=== PATIENT | female | born 1990 | race Caucasian/White ===

== ENCOUNTER → 2020-02-17 11:33 | Outpatient (BNVA) | payer OTHER, SELFPAY | PROVIDERS: Visit Provider Dermatology | DX: L25.5 Unspecified contact dermatitis due to plants, except food (principal); B07.8 Other viral warts; L85.8 Other specified epidermal thickening | CPT/HCPCS: 99203 ==

== ENCOUNTER 2021-07-19 17:04 | Outpatient (CLI) | payer OTHER, SELFPAY ==
[2021-07-19 17:04] VITALS: BMI 42.0
[2021-07-19 17:17] VITALS: TEMP 36.2
[2021-07-19 17:28] VITALS: BP 155/96; PULSE 100
[2021-07-19 17:43] VITALS: BP 148/97; PULSE 106
[2021-07-19 17:58] VITALS: BP 129/68; PULSE 95
[2021-07-19 18:13] VITALS: BP 119/60; PULSE 100
[2021-07-19 18:30] VITALS: BP 119/60; PULSE 100; RESP 16; TEMP 36.5
== END 2021-07-19 18:30 | disposition home or self-care (01) ==
LOC: OPOB 17:12 → OBGYN 17:14
PROVIDERS: PCP Registered Nurse; Visit Provider Family Medicine
DX: O16.9 Unspecified maternal hypertension, unspecified trimester (principal)
CPT/HCPCS: 59025; 99211

== ENCOUNTER 2021-07-20 06:20 | Inpatient (IN) | payer OTHER, SELFPAY ==
[2021-07-20] VITALS (291 sets, daily range): BP systolic 64–235; BP diastolic 29–120; PULSE 70–164; RESP 14–18; TEMP 36.2–36.3; O2SAT 92–100; BMI 42.0
[2021-07-20 06:37] LABS: Basophils % 0.3 %; Eosinophils # 0.2 10^3/uL (0.0-0.8); Eosinophils % 1.3 %; Hemoglobin 13.1 g/dL (11.5-15.3); Lymphocytes # 1.7 10^3/uL (0.8-4.8); Lymphocytes % 14.8 %; Mean Corpuscular Volume 96.9 fl (81-99); Mean Platelet Volume 12.1 fL (7.4-10.4); Monocytes # 0.7 10^3/uL (0.2-0.9); Monocytes % 5.7 %; Neutrophils # 9.05 10^3/uL (1.8-7.7); Neutrophils % 77.6 %; Nucleated Red Blood Cells % 0 %; Platelet Count 206 10^3/cmm (130-400); Red Blood Count 4.23 10^6/uL (4.1-5.3); White Blood Count 11.7 10^3/uL (4.0-10.0)
[2021-07-20] MEDS: fentaNYL 50 mcg/mL INJ 2mL IVP (06:47)
[2021-07-20] MEDS: lactated ringers 1,000 ML 999 ML IV (06:48)
[2021-07-20] MEDS: ondansetron 2 mg/ML SDV 2 mL 4 MG IVP (06:48)
[2021-07-20] MEDS: oxytocin 30 UNIT/500 ML BAG 600 UNIT IV (06:49)
[2021-07-20] MEDS: labetalol 5 mg/mL SDV 20mL 20 MG IVP (07:27)
[2021-07-20] MEDS: magnesium sulfate premix 4 GM/100 ML PREMIX IV (07:30)
[2021-07-20 07:35] LABS: Alanine Aminotransferase 12 U/L (0-33); Albumin Level 3.2 g/dL (3.5-5.2); Alkaline Phosphatase 202 IU/L (35-105); Anion Gap 15.8 (5-19); Aspartate Amino Transferase 19 U/L (0-32); Blood Urea Nitrogen 5 mg/dL (6-20); Calcium 8.3 mg/dL (8.5-10.5); Carbon Dioxide 23 mmol/L (22-29); Chloride 103 mmol/L (98-107); Globulin 3.2 g/dL (1.3-4.6); Glomerular Filtration Rate 144.9 mL/min (90-130); Glucose 88 mg/dL (65-115); Osmolality Calculated 283 mOsm/kg (285-295); Potassium 3.8 mmol/L (3.5-5.1); Sodium 138 mmol/L (136-145); Total Bilirubin 0.2 mg/dL (0.15-1.2); Total Protein 6.4 g/dL (6.6-8.7); Uric Acid 4.2 mg/dL (2.4-5.7)
--- NOTE | 2021-07-20 07:44 | PM.HP ---
Providers/Chief Complaint Admitting Physician: Vincent Hanna MD Primary Care Provider: KIARA Collier Chief Complaint: Contractions History of Present Illness Gini Gupta is a 31 year old 2 para 1-0-0-1 female who presented to the hospital in active labor. She was checked and found to be 8 cm dilated. She was in significant pain and was noted to have high blood pressures on admission to the hospital. The night prior she had been seen in my office where her systolic blood pressure was noted to be in the 140s. The patient had demonstrated a tendency to have high blood pressures when she was struggling with stress or anxiety -even before 20 weeks. She also demonstrated that those blood pressures would resolve if she was given time. Last night with her elevated blood pressure, we discussed the possibility of induction given her gestational age. she had no symptoms associated with preeclampsia including minimal weight gain, and no edema. She had some important issues she needed to do with the next 24 hours. As result I let her go to the hospital and have her blood pressure checked multiple times to see if would go down. Her blood pressure initially was 155/96. It gradually trended down to 119/60. In the absence of symptoms, I agreed to hold off on induction. On the day of admission she arrived to the hospital, we discussed getting her bolused again epidural versus breaking her water and trying to have a quick delivery. She was very concerned about having an actual delivery, but ultimately agreed to having an amniotomy. After the amniotomy we began pushing with her. She had a probable eclamptic seizure. She had a vacuum-assisted vaginal delivery. Please refer to delivery note for more details. Review of Systems General: Reports: 10 or more systems reviewed and unremarkable except in HPI and below Const: Reports: fatigue; Denies: fever(s) Eyes: Denies: change in vision Card: Denies: chest pain, edema or swelling of feet/ankles Resp: Denies: dyspnea Musc: Reports: back pain Gennaro/Lymph: Denies: easy bruising Medications/Allergies Home Medications Medication Instructions Recorded Confirmed Last Taken Type sertraline 50 mg tablet See Rx Instructions .ROUTE 10/03/20 Unknown Rx .COMPLEX #30 tab Allergies Allergy/AdvReac Type Severity Reaction Status Date / Time shellfish derived Allergy Unknown Verified 02/06/21 10:55 PFSH Acute PFSH: Surgical History (Updated 07/22/21 @ 10:16 by Vincent Hanna MD) History of tonsillectomy and adenoidectomy [place] teeth removed Family History Other Hypertension Denies family history of Diabetes CAD (coronary artery disease) Cancer Social History Smoking and tobacco status: never smoked Second hand smoke exposure: No Alcohol intake: never History of recent travel: No Vitals/I&O/Wt Last Vital Signs Temp 97.2 F L 07/20/21 07:42 Pulse 96 07/20/21 07:41 Resp 14 07/20/21 06:47 BP 165/94 07/20/21 07:41 Pulse Ox 99 07/20/21 07:41 07/19/21 07/20/21 07/20/21 22:59 06:59 14:59 Intake Total 500 / 500 Balance 500 / 500 Physical Exam Const: COMMON NORMALS: patient oriented x3 and alert HENMT: COMMON NORMALS: moist oral mucous membranes HEAD & SCALP: normal to inspection Chest: COMMONS NORMALS: normal inspection of the chest Resp: COMMON NORMALS: clear to auscultation bilaterally AUSCULTATION: clear to auscultation bilaterally Cardio: COMMON NORMALS: regular rate and regular rhythm RATE: regular rate RHYTHM: regular rhythm GI: INSPECTION: Yes normal to inspection and Yes other (Gravid) Extremity: COMMON NORMALS: normal to inspection GENERAL: Yes edema (Trace) Neuro: COMMON NORMALS: patient oriented x3, moves all extremities and no sensory deficits noted SENSORIUM/ORIENTATION: Yes alert Psych: COMMON NORMALS: mental status grossly normal Skin: COMMON NORMALS: no rashes or lesions noted GENERAL SKIN EXAM: no rashes or lesions noted Data : 07/20/21 19:44 07/20/21 06:30 A&P Assessment and plan (1) Eclamptic seizure: The patient will be on magnesium for at least 24 hours. Should be moderate 1 on 1 with a nurse as we continue with preemptive protocol. She is having no symptoms besides some mild visual changes post seizure. She is not postictal. Her muscles are not achy. There was no obvious loss of bowel or bladder function. Thankfully, outside of her protein creatinine ratio, her preeclamptic profile is within normal limits. Her blood pressure has been easily controlled with labetalol. Status: Acute (2) Vacuum-assisted vaginal delivery: Status: Acute (3) 38 weeks gestation of : Status: Acute Attestations Medical Necessity Statement*: The patient will require at least a 48-hour stay due to possible eclamptic seizure. Coding Level of Care Code Acute Finish Carpenter for Chg Fwd Exam Comprehensive Diagnoses Eclamptic seizure O15.9 Vacuum-assisted vaginal delivery Z37.9 38 weeks gestation of Z3A.38
--- NOTE | 2021-07-20 07:45 | PM.DELIVERY ---
Delivery Note: Date of delivery: July 20, 2021 Pre-delivery diagnoses: 1. 31-year-old 2 female at 38 weeks presenting to the hospital in active labor Post-delivery diagnoses: 1. Status post vacuum-assisted vaginal delivery 2. Status post probable eclamptic seizure Procedure: Vacuum-assisted vaginal delivery Op report anesthesia: None Delivering Physician: Vincent Hanna Estimated blood loss (mL): 100 Pre-Delivery Course: The patient is a 31-year-old 2 para 1-0-0-1 with an estimated gestational age of 38 weeks and 4 days. She presented to the hospital complaining of contractions for several hours. Upon arrival to hospital she was found to be 8 cm dilated and 80% effaced. Her membranes were intact. She was nicolas consistently every 2 to 3 minutes. She wanted an epidural. We discussed the option of getting her bolused and trying to get the epidural. We discussed that this would probably take about an hour or more to happen. And that given her dilation, how stretch your cervix was, and her multigravida status, it was unlikely she would last that long. We also gave her the option to have her water broke and likely proceed more quickly with the hopes that she would be in pain for less amount of time She agreed to have an amniotomy. The amniotomy was performed. Immediately after breaking her water, her cervix was noted to be 9 cm and stretchy. We began pushing with the patient. I left the room briefly to do some paperwork. After several minutes, I was urgently called back and by the nurses because the patient was losing consciousness. When I arrived in the room, the patient was unconscious. She was not responding to sternal rub. She appeared to be breathing only intermittently. Her pulse ox was knocked off her finger a couple of times, but each time it was replaced her oxygen was noted to be 100%. Shortly after I arrived in the room, the patient began seizing. She had generalized tonic-clonic seizures 2 times that each lasted for about 10 to 30 seconds. At that point, since the baby was close to delivery, the patient's vital signs were stable, I elected to focus on delivering the baby. Delivery: DELIVERY: I moved to the perineum where the baby was noted to be +2 station. The mother was still unconscious and/or seizing at this point and was unable to help push. I applied a Kiwi vacuum to the 's head immediately in the usual fashion. I then pulled on the infant on 2 different occasions for approximately 20 seconds each time. On my second pull I was able to deliver the head and subsequently the rest of the baby. The cord was immediately clamped and cut and she was handed to the waiting nurses for resuscitation. She delivered a male with a weight of 8 pounds 13 ounces with Apgars of 5, 8. The baby was delivered from the STEPHANIE position. There was no nuchal cord. There was no meconium. A magnesium bolus was initiated. Labetalol per protocol was ordered. The placenta and 3 vessel cord were delivered intact shortly thereafter. The perineum and vaginal vault were carefully examined. A second-degree posterior midline tear was noted. It was repaired with 3-0 Vicryl in the usual fashion. The baby required some positive pressure ventilation for a couple minutes, but otherwise responded well to resuscitation and was in stable condition. The mother became conscious shortly after her second seizure and was emotional, but otherwise appeared to be stable. She did notice spots in her vision after her seizure. Post-Delivery Status: Good A&P Assessment and plan (1) 38 weeks gestation of : Status: Acute (2) Vacuum-assisted vaginal delivery: Status: Acute (3) Eclamptic seizure: The patient was given a magnesium bolus, will be maintained on magnesium for at least 24 hours. We will also use labetalol as needed to control her blood pressure. A preeclamptic panel has been ordered and will make further adjustments based on those results. Status: Acute Coding Level of Care Code Acute Training Instructor for Chg Fwd Diagnoses 38 weeks gestation of Z3A.38 Vacuum-assisted vaginal delivery Z37.9 Eclamptic seizure O15.9
[2021-07-20] MEDS: labetalol 5 mg/mL SDV 20mL 40 MG IVP (07:50)
[2021-07-20] MEDS: magnesium sulfate premix 20 GM/500 ML BAG IV ×2 (07:58→17:18)
[2021-07-20] MEDS: HYDROcodone-acetaminophen 5-325 mg Tablet PO (08:11)
[2021-07-20] MEDS: benzocaine-menthol 78 gm Canister 1 SPRAY TOPICAL (08:12)
[2021-07-20] MEDS: ibuprofen 800 mg tablet PO ×3 (08:12→21:54)
[2021-07-20 08:17] LABS: Urine Creatinine 136 mg/dL (28-217)
[2021-07-20 08:38] LABS: Urine Protein Random 326 mg/dL
[2021-07-20 09:24] LABS: Bilirubin Urine Neg (Negative); Blood Urine 3+ (Negative); Glucose Urine UA Norm (Normal); Ketones Urine 2+ (Negative); Leukocyte Esterase Urine Negative (Negative); Nitrate Urine Negative (Negative); Protein Urine 3+ (Negative); Specific Gravity, Urine 1.025 (1.005-1.030); Urine Appearance SL Hazy (CLEAR); Urine Color Yellow (Yellow); Urobilinogen Urine Norm (Negative); pH Urine 5 (5-7)
[2021-07-20 09:25] LABS: Add Urine Culture? Yes; Bacteria Urine 1+ /hpf; Hyaline Casts Urine 0-4 /lpf; Mucus Urine 2+ /hpf; RBC Urine 15-25 /hpf (0-2); WBC Urine 0-4 /hpf (0-5)
--- NOTE | 2021-07-20 14:07 | XR_ITS ---
WS: [id number] Exam: XR chest 1V portable [id number] Date/Time of Exam: 07/20/2021 2:17 PM Reason For Exam: Crackles bilateral lower bases Findings: The lungs are clear and fully expanded. Costophrenic angles are sharp. No infiltrates. Bronchovascula r relief appears normal. Cardiac silhouette is unremarkable. Bony elements are intact. XR/XR chest 1V portable [id number] IMPRESSION: Unremarkable chest radiograph.
[2021-07-20] MEDS: dextrose 5%-lactated ringers 1,000 ML 75 ML IV (15:18)
--- NOTE | 2021-07-20 16:29 | PC.NURSE ---
Delivery Summary Industrial Technician to room and observed patient not coping well, verbal coaching given, patient stated I can't do this , Erlinda Giordano RN checking patient cervix at this time. Patient noted to be complete and was pushing. Patient observed losing consciousness, Dr. Hanna called to room at this time. Patient sternal rubbed by Angelo Sylvester RN and verbally responded at that time. Oxygen placed on patient at 15L by non re-breather, pulse-ox placed on patient but unable to obtain reading related to patient flailing. Dr. Hanna to room and patient lost consciousness a second time, patient does not respond to painful stimuli and is noted to be apneic making only agonal gasps. Patient also noted to be having seizure like activity during this episode. Suction setup at bedside. Episode lasted approximately 30 seconds and then patient responded verbally by stating I can't see . Emergency light activated. Patient then had a third episode with this one also having seizure like activity that lasted approximately 20 seconds. Patient then made attempts to push as directed with vacuum applied. See baby boy [place] chart for additional information. Baby boy born at 0706 and placed on mother's abdomen while Dr. Hanna clamped and cut cord, then baby taken to warmer. Patient slowly regained awareness and sight, verbal orders for labetelol and magnesium ordered by Dr. Hanna. Oxygen removed shortly after delivery of baby when oxygen saturation reading was 100% per Dr. Hanna's orders. Patient noted to have bruising over sternum from incident, but no other injuries noted.
[2021-07-20] MEDS: docusate sodium 100 mg Capsule PO (18:03)
[2021-07-20 20:29] LABS: Hematocrit 33.4 % (37.0-47.0); Hemoglobin 10.6 g/dL (11.5-15.3); Mean Corpuscular HGB Conc 31.7 g/dL (30.0-36.0); Mean Corpuscular Hemoglobin 31.1 pg (28.0-34.0); Mean Corpuscular Volume 97.9 fl (81-99); Mean Platelet Volume 12.7 fL (7.4-10.4); Platelet Count 184 10^3/cmm (130-400); Red Blood Count 3.41 10^6/uL (4.1-5.3); Red Cell Distribution Width 15.1 % (12.1-15.1); White Blood Count 13.6 10^3/uL (4.0-10.0)
[2021-07-21] VITALS (159 sets, daily range): BP systolic 103–185; BP diastolic 55–105; PULSE 63–106; RESP 16; TEMP 36.2–36.9; O2SAT 90–100
[2021-07-21] MEDS: magnesium sulfate premix 20 GM/500 ML BAG IV (03:21)
[2021-07-21] MEDS: dextrose 5%-lactated ringers 1,000 ML 75 ML IV (03:22)
--- NOTE | 2021-07-21 08:02 | P.PN_ITS ---
GEOTECHNICAL LABORATORY TECHNICIAN Subjective Subjective: Interval history: The patient is doing very well overall. She is coming up on her 24 hours of magnesium post delivery. She has no complaints besides the fact that she is sick of being in bed. Her blood pressures overall have been doing well but this morning they have increased somewhat and she did have a systolic blood pressure of 171. Vitals/I&O/Wt Last Vital Signs Temp 97.2 F L 07/21/21 06:50 Pulse 89 07/21/21 07:56 Resp 16 07/20/21 18:00 BP 177/97 07/21/21 07:44 Pulse Ox 98 07/21/21 07:56 07/20/21 07/21/21 07/21/21 22:59 06:59 14:59 Intake Total 1589 / 2089 Output Total 1246 / 1813 1379 / 3192 Balance -1246 / -1313 210 / -1103 Weight last 48 hrs Weight 237 lb Physical Exam Narrative: EXAM NARRATIVE: Fundus is below the umbilicus and firm. Const: COMMON NORMALS: no acute distress and patient oriented x3 GENERAL APPEARANCE: cooperative, comfortable and well developed HENMT: COMMON NORMALS: normocephalic and moist oral mucous membranes HEAD & SCALP: normocephalic Chest: COMMONS NORMALS: normal inspection of the chest Resp: COMMON NORMALS: normal respiratory effort and clear to auscultation bilaterally AUSCULTATION: clear to auscultation bilaterally Cardio: COMMON NORMALS: regular rate, regular rhythm, No gallops present (Cardio) and No murmurs present (Cardio) RATE: regular rate RHYTHM: regular rhythm Extremity: COMMON NORMALS: normal to inspection Neuro: COMMON NORMALS: patient oriented x3 and no focal motor deficits Skin: COMMON NORMALS: no rashes or lesions noted GENERAL SKIN EXAM: no rashes or lesions noted Urinary Catheter Management^: Chu: Cath Placed During This Visit: yes Reason for Continuing Indwelling Catheter: Accurate Measurement of Urinary Output in Critically Ill Patients Urinary Catheter Date of Insertion: 07/20/21 Urinary Catheter Time of Insertion: 07:40 Data : 07/20/21 19:44 07/20/21 06:30 A&P Assessment and plan (1) Eclamptic seizure: We will place the patient on labetalol since her blood pressure is trending up. We will stop her magnesium. Status: Acute (2) Vacuum-assisted vaginal delivery: Status: Acute Attestations Medical Necessity Statement*: Anticipate discharge in 1 to 2 days depending on how she responds after being taken off magnesium. Coding Level of Care Code Acute Windows And Doors Installer for Chg Fwd Exam Comprehensive Diagnoses Eclamptic seizure O15.9 Vacuum-assisted vaginal delivery Z37.9
[2021-07-21] MEDS: docusate sodium 100 mg Capsule PO (09:01)
[2021-07-21] MEDS: prenatal vitamin Capsule 1 CAP PO (09:01)
[2021-07-21] MEDS: labetalol 200 mg Tablet PO (09:02)
[2021-07-21] MEDS: acetaminophen 325 mg Tablet 650 MG PO (15:21)
[2021-07-21] MEDS: labetalol 200 mg Tablet 100 MG PO (19:25)
[2021-07-22] VITALS (7 sets, daily range): BP systolic 122–142; BP diastolic 71–94; PULSE 67–88; RESP 18; TEMP 35.9–36.3; O2SAT 97
--- NOTE | 2021-07-22 07:42 | P.DS_ITS ---
Discharge Providers STUDENT RECORDS SPECIALIST Date of Admission: 07/20/21 07:13 Date of Discharge: 07/22/21 Attending Provider at Admission: Vincent Hanna MD Attending Provider at Discharge: Vincent Hanna MD Primary Care Provider: KIARA Collier Diagnoses at Discharge Discharge Diagnosis (1) Eclamptic seizure: Status: Acute (2) Vacuum-assisted vaginal delivery: Status: Acute Reason for Visit Reason for Visit: Contractions Hospital Course Hospital Course The patient presented to the hospital in active labor. She was having severe pain. She desired an epidural but she was already 8 cm. We elected to break her water. After breaking her water, she was noted to have a stretchy cervix that was reducible that was 9 cm. Shortly after he began pushing she went unconscious, then had to short seizures. The baby was delivered with the vacuum during that time. She was then given labetalol and magnesium shortly after the delivery of the infant. She was then kept on magnesium for 24 hours. Her preeclamptic panel did demonstrate a protein creatinine ratio of 2.4. Otherwise the remainder of her preeclamptic labs were essentially within normal limits. She was placed on labetalol for the remainder of her hospital stay. Her blood pressures normalized. And she was placed on 100 mg of labetalol twice a day for her final day in the hospital. She began diuresing appropriately within the first 24 hours of her delivery. She did experience some visual changes, and she did have clonus, but otherwise had no other preeclamptic symptoms after the seizure. Her bleeding was within normal limits. Her pain was well controlled with Tylenol. Information Peripartum Data: Delivery Method: Vaginal Physical Exam Const: COMMON NORMALS: patient oriented x3 and alert HENMT: COMMON NORMALS: moist oral mucous membranes HEAD & SCALP: normal to inspection Chest: COMMONS NORMALS: normal inspection of the chest Resp: COMMON NORMALS: clear to auscultation bilaterally AUSCULTATION: clear to auscultation bilaterally Cardio: COMMON NORMALS: regular rate and regular rhythm RATE: regular rate RHYTHM: regular rhythm GI: INSPECTION: Yes normal to inspection Extremity: COMMON NORMALS: normal to inspection GENERAL: Yes edema (Trace) Neuro: COMMON NORMALS: patient oriented x3, moves all extremities and no sensory deficits noted SENSORIUM/ORIENTATION: Yes alert Psych: COMMON NORMALS: mental status grossly normal Skin: COMMON NORMALS: no rashes or lesions noted GENERAL SKIN EXAM: no rashes or lesions noted Urinary Catheter Management^: Chu: Cath Placed During This Visit: yes, but has since been removed by the nurse Reason for Continuing Indwelling Catheter: Accurate Measurement of Urinary Output in Critically Ill Patients Urinary Catheter Date of Insertion: 07/20/21 Urinary Catheter Time of Insertion: 07:40 Date Urinary Catheter Removed: 07/21/21 Time Urinary Catheter Discontinued: 09:05 Discharge Data Data Completed and Pending: Completed Studies During Hospitalization Category Date Time Status XR chest 1V faby ble [id number] Stat Exams 07/20/21 14:07 Completed Pending at discharge Category Date Time Status Urine Culture Sta t Lab 07/20/21 07:35 Results Addt'l Data from Hospital Stay: Chest x-ray was performed on July 20 at 2 PM and was within normal limits. On admission her white blood count was 11.7 and was 13.6 . Her hemoglobin went from 13.1-10.6. Her platelet counts were 206, and 184. Her metabolic panel had the following abnormalities. Her calculated osmolality was 283 with a calcium of 8.3 and alkaline phosphatase of 202 total protein of 6.4 and albumin of 3.2. Her urinalysis demonstrated 3+ protein 2+ ketones 3+ urine blood with 15-25 red blood cells 0-4 white blood cells 5-10 squamous epithelial cells and 1+ urine bacteria her protein creatinine ratio was 2.4 Vitals: Last Vital Signs Temp 96.6 F L 07/22/21 03:39 Pulse 67 07/22/21 03:40 Resp 16 07/21/21 07:00 BP 122/71 07/22/21 03:40 Pulse Ox 97 07/22/21 03:39 Discharge Plan Discharge Patient Disposition: Home Condition: Stable Prescriptions: New labetalol 200 mg Tablet 100 mg PO BID Qty: 60 RF: 0 hydrocodone-acetaminophen 5-325 mg Tablet 1 tab PO Q6H PRN (Reason: Moderate To Severe Pain) Qty: 20 RF: 0 Continued sertraline 50 mg tablet See Rx Instructions .ROUTE .COMPLEX Qty: 30 RF: 0 Discontinued alprazolam [Xanax] 0.25 mg tablet 0.25 mg PO BID PRN (Reason: anxiety) Qty: 30 RF: 0 clobetasol 0.05 % ointment 1 applic TOPICAL BID 14 Days Qty: 60 RF: 1 prednisone 10 mg tablet 10 mg PO DAILY Qty: 21 RF: 0 norgestimate-ethinyl estradiol [Sprintec (28)] 0.25-35 mg-mcg tablet See Rx Instructions .ROUTE .COMPLEX Qty: 84 RF: 3 Discharge Orders: Discharge Order (Routine); Ordered 07/22/21 Ordered By: Vincent Hanna Referrals: Vincent Hanna MD [Physician] - 07/25/21 Discharge Diet: Usual diet Discharge Activity: Limit activity as instructed Patient Instructions: Bleeding (DC), Preeclampsia and Eclampsia After Delivery (GEN), Hemorrhage (DC), OB Discharge Report, OB Food/Drug Interaction Guide, OB Care at Home, Opioid Safety, OB Proud Parent Packet, OB Vaginal Deliveries Discharge Attestations STUDENT RECORDS SPECIALIST Time Spent in Discharge Care*: greater than 30 min Specific Discharge Activities: Specific discharge activities: educating patient and educating and/or supporting family/caregiver Coding Level of Care Code Acute Account Strategist for Chg Fwd Diagnoses Eclamptic seizure O15.9 Vacuum-assisted vaginal delivery Z37.9
[2021-07-22] MEDS: prenatal vitamin Capsule 1 CAP PO (08:44)
[2021-07-22] MEDS: labetalol 200 mg Tablet 100 MG PO (08:44)
[2021-07-22] MEDS: docusate sodium 100 mg Capsule PO (08:44)
== END 2021-07-22 10:35 | disposition home or self-care (01) | DRG 807 ==
LOC: OPOB 07-24 08:23 → OBGYN 07-24 08:24
PROVIDERS: Admitting Provider Family Medicine; PCP Registered Nurse; Visit Provider Family Medicine
DX: O15.1 Eclampsia complicating labor (principal); Z37.0 Single live birth; Z3A.38 38 weeks gestation of pregnancy; O70.1 Second degree perineal laceration during delivery
CPT/HCPCS: 12345; 36415; 51702; 59025; 59409; 71045; 80053; 81001; 82570; 84156; 84550; 85025; 85027; 87086; 96374; 96376; 99211; J2405; J3010; J3475; J3490

== ENCOUNTER → 2023-01-11 15:58 | Outpatient (BNVA) | payer OTHER, SELFPAY | PROVIDERS: PCP Family Medicine; Visit Provider Family Medicine | DX: N92.6 Irregular menstruation, unspecified (principal) | CPT/HCPCS: 80053; 80061; 84439; 84443; 85025 ==

== ENCOUNTER 2023-01-29 16:07 | Outpatient (RCR) | payer OTHER, SELFPAY | END 2023-02-08 23:59 | disposition home or self-care (01) | LOC: SPT 16:07 | PROVIDERS: Visit Provider Family Medicine | DX: N39.3 Stress incontinence (female) (male) (principal) | CPT/HCPCS: 97110; 97161; 97530 ==

== ENCOUNTER 2023-02-09 06:00 | Outpatient (RCR) | payer OTHER, SELFPAY | END 2023-03-11 23:59 | disposition home or self-care (01) | LOC: SPT 06:00 | PROVIDERS: PCP Family Medicine; Visit Provider Family Medicine | DX: N39.3 Stress incontinence (female) (male) (principal) | CPT/HCPCS: 97110; 97530 ==

== ENCOUNTER 2023-03-12 06:00 | Outpatient (RCR) | payer OTHER, SELFPAY | END 2023-04-11 23:59 | disposition home or self-care (01) | LOC: SPT 06:00 | PROVIDERS: PCP Family Medicine; Visit Provider Family Medicine | DX: N39.3 Stress incontinence (female) (male) (principal) | CPT/HCPCS: 97110 ==